=== PATIENT | male | born 2000 | race Two or more races ===

== ENCOUNTER 2024-07-18 16:04 | Emergency (ER) | payer MEDICAID, SELFPAY ==
[2024-07-18 16:05] VITALS: BMI 35.3
[2024-07-18 16:50] VITALS: BP 150/80; PULSE 85; RESP 18; TEMP 36.9; O2SAT 99
--- NOTE | 2024-07-18 17:00 | PD.EDRME ---
Rapid Medical Screening Exam RME Arrival date/time: 07/18/24 16:04 24-year-old male with history of abdominal pain and GI issues recently seen and had endoscopy in May presents with complaints of vomiting blood today Chief Complaint: Nausea/Vomiting/Diarrhea Vital signs: Vital Signs Temperature 98.4 F 07/18/24 16:50 Pulse Rate 85 07/18/24 16:50 Respiratory Rate 18 07/18/24 16:50 Blood Pressure 150/80 H 07/18/24 16:50 Pulse Oximetry (%) 99 07/18/24 16:50 Oxygen Delivery Method Room Air 07/18/24 16:50
[2024-07-18 17:33] LABS: Collection Type, Urine Clean Catch; Squamous Epithelial Cell,Urine 0 /hpf (0-5)
[2024-07-18 17:38] LABS: Bilirubin,Urine Negative (Negative); Blood,Urine Negative (Negative); Clarity,Urine Clear (Clear/Hazy); Color,Urine Colorless (Lt Yel-Yel); Culture Indicated,Urine Not Indicated; Glucose, Urine Negative (Negative); Ketones,Urine Negative (Negative); Leukocyte Esterase,Urine Negative (Negative); Nitrite,Urine Negative (Negative); Protein,Urine Negative (Neg - Trace); RBC,Urine 1 /hpf (0-3); Specific Gravity,Urine 1.007 (1.001-1.035); Urobilinogen,Urine Negative mg/dL (0.0-1.0); WBC,Urine < 1 /hpf (0-5)
[2024-07-18 17:46] LABS: Amphetamine/Methamp Scrn,U Negative (Negative); Barbiturate Screen,Urine Negative (Negative); Benzodiazepines Screen,Urine Negative (Negative); Benzoylecgonine Screen, Ur Negative (Negative); Fentanyl Screen,Urine Negative (Negative); Opiate Screen,Urine Negative (Negative); THC Screen,Urine Positive (Negative)
[2024-07-18 17:52] LABS: Alanine Aminotransferase 69 U/L (10-49); Albumin, Serum 4.9 gm/dL (3.5-5.0); Albumin/Globulin Ratio 1.8 (1.2-2.2); Alkaline Phosphatase 88 U/L (46-116); Anion Gap 7 (7-16); Aspartate Amino Transferase 36 U/L (0-34); BUN/Creatinine Ratio 7 Ratio (12-20); Bilirubin,Total 0.9 mg/dL (0.3-1.2); Blood Urea Nitrogen 7 mg/dL (9-23); Carbon Dioxide 27.8 mMol/L (20.0-31.0); Chloride 107 mMol/L (98-107); Estimated Creatinine Clearance 158.5 mL/min (>60); Globulin 2.8 gm/dL (2.3-3.5); Glucose 98 mg/dL (74-106); Lipase 97 U/L (12-53); Osmolality,Calculated 281 (275-295); Sodium 142 mMol/L (136-145); Total Protein 7.7 gm/dL (5.7-8.2); eGFR > 60 See Note
[2024-07-18 19:11] LABS: Prothrombin Time 11.4 Seconds (9.0-12.2)
[2024-07-18 19:28] LABS: Basophils % (Auto) 0 % (0-2.5); Eosinophils % (Auto) 0 % (0-10); Hematocrit 46.1 % (41.0-53.0); Hemoglobin 15.8 g/dL (13.5-16.0); Immature Granulocytes % (Auto) 0 % (0-0); Immature Granulocytes Auto 0.03 Thou/mm3 (0.00-0.00); Lymphocytes # (Auto) 0.9 Thou/mm3 (1.0-4.8); Lymphocytes % (Auto) 10 % (10-50); Mean Corpuscular HGB Conc 34.3 g/dl (31.0-37.0); Mean Corpuscular Hemoglobin 30.4 pg (25.0-35.0); Mean Corpuscular Volume 89 fL (80-100); Monocytes # (Auto) 0.4 Thou/mm3 (0.0-0.8); Monocytes % (Auto) 5 % (0-12); Neutrophils # (Auto) 7.2 Thou/mm3 (1.8-7.7); Neutrophils % (Auto) 85 % (37-80); Nucleated Red Blood Cell % 0 /100 WBC (0); Platelet Count 243 Thou/mm3 (140-440); Red Blood Count 5.19 Miln/mm3 (4.50-5.90); White Blood Count 8.6 Thou/mm3 (3.8-10.6)
--- NOTE | 2024-07-19 00:44 | PC.NURSE ---
PATIENT CAME TO ELECTRICAL TECHNICIAN TO ASK HOW MUCH TIME FOR RESULTS. I APOLOGIZE FOR THE WAIT TIME AND NOTIFIED PROVIDER AND CHARGE NURSE THAT PATIENT IS UPSET ABOUT THE WAIT TIME.
== END 2024-07-19 02:12 | disposition left against medical advice (07) ==
PROVIDERS: Nurse Practitioner Primary Care; Emergency Provider Emergency Medicine; PCP Family Medicine
DX: R11.2 Nausea with vomiting, unspecified (principal); R10.9 Unspecified abdominal pain; R19.7 Diarrhea, unspecified; Z53.29 Procedure and treatment not carried out because of patient's decision for other reasons
CPT/HCPCS: 36415; 80053; 80307; 81001; 83690; 85025; 85610; 85730; 99281